=== PATIENT | female | born 1955 | race Caucasian/White ===

== ENCOUNTER → 2016-11-05 | Outpatient (CLI) | payer BC ==
[2016-11-05 14:33] LABS: HEMATOCRIT 42.8 % (37.0-47.0); MEAN CORPUSCULAR HEMOGLOBIN 30.8 PG (27-31); MEAN CORPUSCULAR HGB CONC 32.7 g/dL (33-37); MEAN CORPUSCULAR VOLUME 94.3 FL (81-99); MEAN PLATELET VOLUME 10.8 FL (7.4-12.2); RED BLOOD COUNT 4.54 10^6/uL (4.20-5.40)
[2016-11-05 14:47] LABS: BLOOD UREA NITROGEN 16 mg/dL (7-22); BUN/CREATININE RATIO 17.77 (6-20); CALCIUM 9.6 mg/dL (8.7-10.7); EST GLOMERULAR FILTRATION > 60 (>60 ml/min/1.73m(2)); MAGNESIUM 1.8 mg/dL (1.6-2.4); SERUM ALBUMIN 4.1 g/dL (3.5-4.8)
--- NOTE | 2016-11-11 08:35 | HOLTER ---
[facility] Interpretive Statements Sister at age 50, Brother at age 52 with heart complications Smoked 40 years at a pack a day quit 6 years ago [email or web address]
== END ==
LOC: MOB LAB 13:36
PROVIDERS: ATTEND Family Medicine
DX: R00.2 Palpitations (principal)
CPT/HCPCS: 36415; 80053; 83735; 84439; 84443; 85027; 93225; 93226; 93227

== ENCOUNTER → 2016-11-12 | Outpatient (CLI) | payer BC ==
--- NOTE | 2016-11-12 10:54 | DI ---
RIGHT DIAGNOSTIC MAMMOGRAMS, 11/12/2016 8:58 AM: Clinical History: 6 month followup of a stellate density in the lateral half of the right breast seen only on the craniocaudal projection. Prior Exam: 04/23/2016, and a diagnostic right mammogram from 05/04/2016 that includes digital breast tomosynthesis. Digital tomosynthesis scans of the right breast are obtained with the [facility] Digital Breast Unit. C-View images are obtained in the same projections as in the screening exam. CAD review is als o performed. Breast tissue density is rated as heterogenously dense. There is still a focus of architectural disto rtion in the lateral half of the right breast and based on the tomograms, this is in the lower outer quadrant. However, this is not visualized with certainty on the mediolateral oblique projection and t omograms. No abnormal calcifications are noted. Skin contour, nipple, and lower axillary region are n ormal. Follow Up: I believe this focus of architectural distortion is benign. I will have this study reviewe d with outside consultants for a consensus opinion. I have explained this to the patient and she appe ared to understand that this will be reviewed. BIRADS Category: 2. Benign finding. Outside consultation pending. Assessment: Benign finding.
== END ==
LOC: MAMMO 08:53
PROVIDERS: ATTEND Family Medicine
DX: R92.8 Other abnormal and inconclusive findings on diagnostic imaging of breast (principal)
CPT/HCPCS: G0206; G0279

== ENCOUNTER → 2016-11-26 | Outpatient (CLI) | payer BC | LOC: US 11-19 12:54 | PROVIDERS: ATTEND Family Medicine | DX: R94.31 Abnormal electrocardiogram [ECG] [EKG] (principal); I35.1 Nonrheumatic aortic (valve) insufficiency; I07.1 Rheumatic tricuspid insufficiency; F17.200 Nicotine dependence, unspecified, uncomplicated | CPT/HCPCS: 93306 ==